=== PATIENT | female | born 1990 | race Caucasian/White ===

== ENCOUNTER 2017-01-25 00:45 | Emergency (ER) | payer BC, OTHER ==
[~2017-01-25] VITALS: Ht 162.6 cm; Wt 64.9 kg
--- NOTE | 2017-01-25 01:16 | NUR ---
PT PRESENTED TO THE ER WITH A C/O SORE THROAT AND BLEEDING S/P TONSILECTOMY 1 WK AGO. PT IS NOT ABLE TO SPEAK WITHOUT PAIN. PT IS CURRENTLY NOT ACTIVELY BLEEDING. DR. PRICE IS AT THE BEDSIDE.
--- NOTE | 2017-01-25 01:39 | NUR ---
Patient discharged to home in stable condition. Written and verbal after care instructions given. Patient verbalizes understanding of instruction. PT INSTRUCTED TO RETURN IF BLEEDING PERSISTS. VSS. PT'S IS DRIVING PT HOME.
[2017-01-25 01:44] VITALS: BP 140/83
== END 2017-01-25 01:45 | disposition home or self-care (01) ==
LOC: ER 00:48
DX: R07.0 Pain in throat (principal)
CPT/HCPCS: A4606; Z7502; Z7610